=== PATIENT | female | born 1965 | race Caucasian/White ===

== ENCOUNTER → 2021-06-05 | Outpatient (CLI) | payer MEDICARE | LOC: HEART 5 15:41 | DX: J45.909 Unspecified asthma, uncomplicated (principal) | CPT/HCPCS: 94060; 94729 ==

== ENCOUNTER → 2022-02-13 | Outpatient (CLI) | payer MEDICARE | LOC: KOH-I 14:52 | DX: R60.9 Edema, unspecified (principal) | CPT/HCPCS: 71046 ==

== ENCOUNTER → 2022-02-23 | Outpatient (CLI) | payer MEDICARE | LOC: EXRD 15:15 | DX: R22.43 Localized swelling, mass and lump, lower limb, bilateral (principal) | CPT/HCPCS: 93971 ==

== ENCOUNTER → 2022-03-13 | Outpatient (CLI) | payer MEDICARE | LOC: KOH-I 13:47 | DX: R05.9 Cough, unspecified (principal) | CPT/HCPCS: 71046 ==